=== PATIENT | female | born 1955 | race Caucasian/White ===

== ENCOUNTER → 2020-03-19 | Outpatient (CLI) | payer OTHER ==
[~2020-03-19] MED LIST: ALEN70TA74 PO; CETI-24 PO; DOCU100C16 PO; EPIN0.154 IM; FLUT1BLS4 INH; LISI10TA4 PO; OMEP-221 PO; SIMV20TA22 PO; TRIA55AE2 INH; VENTAER INH
== END ==
LOC: M LABSMTC 11:17
PROVIDERS: ATTEND Anesthesiology
DX: Z01.812 Encounter for preprocedural laboratory examination (principal); Z20.828 Contact with and (suspected) exposure to other viral communicable diseases
CPT/HCPCS: C9803; U0003

== ENCOUNTER 2020-03-24 13:40 | Day surgery (SDC) | payer OTHER ==
[~2020-03-24] VITALS: Ht 162.6 cm; Wt 80.2 kg
[~2020-03-24 13:40] MED LIST changes: +NS 1,000 ML IV ONE; +propofoL 200 MG/20 ML VIAL As Ordered ONE
[2020-03-24] MEDS ORDERED: fentaNYL 100 MCG/2 ML INJECTION (J3010) As Ordered ONE (14:48)
[2020-03-24] MEDS ORDERED: LIDOCAINE 2% 100MG/5ML SDV (FOR ANES.) As Ordered ONE (14:51)
[2020-03-24] MEDS ORDERED: propofoL 200 MG/20 ML VIAL As Ordered ONE (15:09)
--- NOTE | 2020-03-24 15:48 | ROOR ---
Patient Name: Ciara Hraris Procedure Date: 03/24/2020 3:12 PM Date of : 1955 Age: 64 Room: [facility] Gender: Female Note Status: Finalized Procedure: Upper GI endoscopy Indications: Heartburn, Heme positive stool Providers: Grover SOMMER MD Referring MD: STEPHY HILLS MD Requesting Provider: Medicines: Monitored Anesthesia Care Complications: No immediate complications. Procedure: Pre-Anesthesia Assessment: - The heart rate, respiratory rate, oxygen saturations, blood pressure, adequacy of pulmonary ventilation, and response to care were monitored throughout the procedure. The Endoscope was introduced through the mouth, and advanced to the second part of duodenum. The upper GI endoscopy was accomplished without difficulty. The patient tolerated the procedure well. Findings: The examined esophagus was normal. Scattered minimal inflammation characterized by erythema was found in the entire examined stomach. Biopsies were taken with a cold forceps for histology. Scattered mild inflammation characterized by erythema was found in the first portion of the duodenum. Biopsies were taken with a cold forceps for histology. The exam was otherwise without abnormality. Impression: - Normal esophagus. - Mild scattered gastritis. Biopsied. - Mild scattered duodenitis. Biopsied. - The examination was otherwise normal. Recommendation: - If applicable: Reduce/avoid ibuprofen, naproxen, or other non-steroidal anti-inflammatory drugs. --Tylenol is OK - Use Prilosec (omeprazole) 40 mg daily. (every day). - Observe patient's clinical course. - Telephone endoscopist for pathology results in 2 weeks. Grover Sommer MD Grover SOMMER MD 03/24/2020 3:47:55 PM Electronically signed by Grover SOMMER MD Number of Addenda: 0 Note Initiated On: 03/24/2020 3:12 PM Estimated Blood Loss: Estimated blood loss: none.
[2020-03-24 16:20] VITALS: BP 157/87
== END 2020-03-24 16:20 | disposition home or self-care (01) ==
LOC: M OPP 13:40
PROVIDERS: ATTEND Internal Medicine Gastroenterology
DX: K29.70 Gastritis, unspecified, without bleeding (principal); K29.80 Duodenitis without bleeding; R12 Heartburn; R19.5 Other fecal abnormalities; I10 Essential (primary) hypertension; Z79.899 Other long term (current) drug therapy; Z88.0 Allergy status to penicillin
CPT/HCPCS: 43239; 88305; J3010

== ENCOUNTER 2022-05-07 13:38 | Emergency (ER) | payer OTHER ==
[~2022-05-07 13:38] MED LIST changes: -ALEN70TA74 PO; +ALEN70TA82 PO; +LISI10TA22 PO; -LISI10TA4 PO; -NS 1,000 ML IV ONE; -OMEP-221 PO; +OMEP40CA5 PO; -propofoL 200 MG/20 ML VIAL As Ordered ONE
[2022-05-07] MEDS ORDERED: PANTOPRAZOLE 40MG VIAL IV ONE (13:55)
[2022-05-07] MEDS ORDERED: NS 1,000 ML IV ONE (13:55)
[2022-05-07] MEDS ORDERED: ONDANSETRON 4MG 2ML VIAL IV ONE (13:55)
[2022-05-07] MEDS ORDERED: MORPHINE 2 MG/ML 1ML VIAL IV ONE (13:55)
[2022-05-07 14:14] LABS: HEMATOCRIT 46.1 % (36.0-47.0); HEMOGLOBIN 15.8 g/dl (12.0-15.5); MEAN CORPUSCULAR HEMOGLOBIN 30.7 pg (27.0-33.0); MEAN CORPUSCULAR HGB CONC 34.3 g/dl (32.0-36.5); MEAN CORPUSCULAR VOLUME 89.5 fl (80.0-96.0); PLATELET COUNT, AUTOMATED 441 10^3/uL (150-450); RED BLOOD COUNT 5.15 10^6/uL (4.00-5.40)
[2022-05-07 14:53] LABS: ALBUMIN 4.1 G/DL (3.2-5.2); ALT/SGPT 53 U/L (7.0-40); BILIRUBIN,DIRECT 0.4 MG/DL (<0.4); BILIRUBIN,TOTAL 1.5 MG/DL (0.3-1.2); BLOOD UREA NITROGEN 38 MG/DL (9-23); CALCIUM LEVEL 9.5 MG/DL (8.3-10.6); CARBON DIOXIDE LEVEL 14 MMOL/L (20-31); CHLORIDE LEVEL 100 MMOL/L (98-107); CREATININE FOR GFR 0.85 MG/DL (0.55-1.30); GLOMERULAR FILTRATION RATE > 60.0 (>45); GLUCOSE, FASTING 191 MG/DL (74-106); LIPASE 29 U/L (12-53); POTASSIUM SERUM 3.9 MMOL/L (3.5-5.1); SODIUM LEVEL 135 MMOL/L (136-145); TOTAL PROTEIN 8.1 G/DL (5.7-8.2)
[2022-05-07 15:05] LABS: LYMPHOCYTES 20 % (16-44); MONOCYTES 1 % (0-5); NEUTROPHILS 77 % (28-66); PLATELET ESTIMATE NORMAL (NORMAL)
[2022-05-07] MEDS ORDERED: ISOVUE-370 76% 100ML VIAL As Ordered ONE (15:06)
[2022-05-07] MEDS ORDERED: ONDA4TAB6 PO (17:29)
[2022-05-07 17:30] VITALS: BP 148/85
== END 2022-05-07 17:43 | disposition home or self-care (01) ==
LOC: EDBD 13:38 → M ED 13:55
DX: A08.4 Viral intestinal infection, unspecified (principal); R19.09 Other intra-abdominal and pelvic swelling, mass and lump; E78.5 Hyperlipidemia, unspecified; K57.30 Diverticulosis of large intestine without perforation or abscess without bleeding; J45.909 Unspecified asthma, uncomplicated; N28.1 Cyst of kidney, acquired; M43.26 Fusion of spine, lumbar region; M43.16 Spondylolisthesis, lumbar region; Z90.81 Acquired absence of spleen; Z79.51 Long term (current) use of inhaled steroids; Z90.710 Acquired absence of both cervix and uterus; Z79.899 Other long term (current) drug therapy; Z88.0 Allergy status to penicillin
CPT/HCPCS: 74177; 80048; 80076; 83605; 83690; 85025; 87486; 87581; 87633; 87798; 93041; 94760; 96361; 96374; 96375; 99285; C9113; J2270

== ENCOUNTER 2022-11-07 10:07 | Day surgery (SDC) | payer MEDICARE ==
[~2022-11-07] VITALS: Ht 157.5 cm; Wt 71.7 kg
[~2022-11-07 10:07] MED LIST changes: +ONDA4TAB6 PO; +allergy shot INJ
[2022-11-07 10:44] LABS: HEMATOCRIT 37.7 % (36.0-47.0); HEMOGLOBIN 12.5 g/dl (12.0-15.5); MEAN CORPUSCULAR HEMOGLOBIN 31.5 pg (27.0-33.0); MEAN CORPUSCULAR HGB CONC 33.2 g/dl (32.0-36.5); PLATELET COUNT, AUTOMATED 465 10^3/uL (150-450); RED BLOOD COUNT 3.97 10^6/uL (4.00-5.40); WHITE BLOOD COUNT 11.6 10^3/uL (4.0-10.0)
[2022-11-07] MEDS ORDERED: LR 1,000 ML IV SCH ×3 (11:15→15:35)
[2022-11-07] MEDS ORDERED: BUPIVACAINE HCL 0.25% 10ML VIAL As Ordered ONE (12:17)
[2022-11-07] MEDS ORDERED: IBUP-1022 PO (12:40)
[2022-11-07] MEDS ORDERED: OXYC1TAB23 PO (12:40)
[2022-11-07] MEDS ORDERED: MIDAZOLAM INJ 2MG/2ML VIAL As Ordered ONE (13:03)
[2022-11-07] MEDS ORDERED: fentaNYL 100 MCG/2 ML INJECTION As Ordered ONE ×2 (13:03→13:04)
[2022-11-07] MEDS ORDERED: KETOROLAC 60MG 2ML VIAL As Ordered ONE (13:43)
[2022-11-07] MEDS ORDERED: ONDANSETRON 4MG 2ML VIAL As Ordered ONE (13:43)
[2022-11-07] MEDS ORDERED: ROCURONIUM BROMIDE 50MG/5ML VIAL As Ordered ONE (13:44)
[2022-11-07] MEDS ORDERED: SUCCINYLCHOLINE 100MG/5ML SYRINGE As Ordered ONE (13:44)
[2022-11-07] MEDS ORDERED: propofoL 200 MG/20 ML VIAL As Ordered ONE ×2 (13:44→14:47)
[2022-11-07] MEDS ORDERED: ACETAMINOPHEN 1000MG 100ML IV BAG As Ordered ONE (13:44)
[2022-11-07] MEDS ORDERED: LIDOCAINE 2% 100MG/5ML SDV (FOR ANES.) As Ordered ONE (13:44)
[2022-11-07] MEDS ORDERED: HYDROMORPHONE HCL 0.5 MG/ 0.5 ML SYRINGE IV PRN (14:40)
[2022-11-07] MEDS ORDERED: fentaNYL 100 MCG/2 ML INJECTION IV PRN (14:40)
[2022-11-07] MEDS ORDERED: oxyCODONE 5MG TAB PO PRN (14:40)
[2022-11-07] MEDS ORDERED: METOCLOPRAMIDE INJ 10MG/2ML VIAL IV PRN (15:30)
[2022-11-07] MEDS ORDERED: PROMETHAZINE 25MG/ML 1ML VIAL IV PRN (15:30)
[2022-11-07] MEDS ORDERED: PERCOCET 5MG/325MG TAB PO PRN (15:35)
[2022-11-07] MEDS ORDERED: diphenhydrAMINE 50MG/ML VIAL IV PRN (15:55)
[2022-11-07 16:53] VITALS: BP 137/70
== END 2022-11-07 17:15 | disposition home or self-care (01) ==
LOC: M SDC 10:07
PROVIDERS: ATTEND Specialist
DX: D27.0 Benign neoplasm of right ovary (principal); I10 Essential (primary) hypertension; E78.5 Hyperlipidemia, unspecified; J45.909 Unspecified asthma, uncomplicated; Z79.899 Other long term (current) drug therapy; Z79.51 Long term (current) use of inhaled steroids; Z88.0 Allergy status to penicillin
CPT/HCPCS: 36415; 58661; 85027; 86850; 86900; 86901; 88305; J0131; J0330; J1100; J1170; J1885; J2250; J2405; J2765; J3010; S2900